=== PATIENT | female | born 1980 | race Asian ===

== ENCOUNTER 2018-12-03 19:19 | Emergency (ER) | payer OTHER ==
--- OUTSIDE RECORDS SUMMARY | 2018-12-03 19:21 | XMS REPORT ---
:1980 Author Organization e[employer]Works Care Team Providers Name Role Phone Tomás Hogue Provider Role Unavailable Allergies, Adverse Reactions, Alerts Substance Reaction Event Type Amoxicillin swollen chin Drug Allergy Problems Problem Type Condition Code Onset Dates Condition Status Problem Depression with anxiety F41.8 Active Problem Vitamin D deficiency E55.9 Active Assessment LGSIL on Pap smear of cervix R87.612 Active Problem Cervical high risk human R87.810 Active papillomavirus (HPV) DNA test positive Problem Atypical squamous cells of R87.610 Active undetermined significance on cytologic smear of cervix (ASC-US) Problem Well woman exam with routine Z01.419 Active gynecological exam Problem Sinus problem J34.9 Active Problem Allergic arthritis M13.89 Active Problem Other specified bacterial agents as B96.89 Active the cause of diseases classified elsewhere Problem Acute vaginitis N76.0 Active Medications Medication Code Code Instructions Start End Status Dosage System Date Date Flagyl ND 12160770505 500 MG Orally Jun 21, Active 1 tablet every 12 hours 2017 Sertraline HCl ND 97306555276 50 MG Orally February 15, Active 1 tablet Once a day 2018 Melatonin ND 08252606788 10 MG Orally Active not defined Vitamin D-3 ND 04189677786 1000 UNIT Orally Active 1 capsule Once a day Magnesium ND 64688930600 200 MG Orally Active 2 tablets Once a day with a meal Results No Known Results Summary Purpose eClinicalWorks Submission
--- OUTSIDE RECORDS SUMMARY | 2018-12-03 19:21 | XMS REPORT ---
:1980 Author Organization [employer]Works Care Team Providers Name Role Phone Hayden Hogueswinder Provider Role Unavailable Allergies, Adverse Reactions, Alerts Substance Reaction Event Type Amoxicillin swollen chin Drug Allergy Problems Problem Type Condition Code Onset Dates Condition Status Problem Depression with anxiety F41.8 Active Problem Vitamin D deficiency E55.9 Active Problem Cervical high risk human R87.810 [...] classified elsewhere Problem Acute vaginitis N76.0 Active Assessment Other specified bacterial agents as B96.89 Active the cause of diseases classified elsewhere Assessment Atypical squamous cells of R87.610 Active undetermined significance on cytologic smear of cervix (ASC-US) Assessment Cervical high risk human R87.810 Active papillomavirus (HPV) DNA test positive Assessment Acute vaginitis N76.0 Active Assessment Well woman exam with routine Z01.419 Active gynecological exam Medications Medication Code Code Instructions Start End Status Dosage System Date Date Magnesium [facility] 82187997200 200 MG Orally Active 2 tablets Once a day with a meal Sertraline HCl [facility] 09434861065 50 MG Orally February 15, Active 1 tablet Once a day 2018 Melatonin [facility] 45508264475 10 MG Orally Active not defined Flagyl [facility] 00655550364 500 MG Orally Jun 21, Active 1 tablet every 12 hours 2018 Vitamin D-3 ND 56790795494 1000 UNIT Orally Active 1 capsule Once a day Results Name Result Date Reference Range Unit Abnormality Flag URINALYSIS AUTO W/O SCOPE (13790) ----NIT neg [id number] ----URO 0.2 [id number] ----PROTEIN neg [id number] ----pH 5.5 20180621 ----BLO trace [id number] ----GLUCOSE neg [id number] ----JEFFREY trace [id number] ----BILIRUBIN neg [id number] ----KETONES neg [id number] ----SPECIFIC GRAVITY 1.025 [id number] Summary Purpose eClinicalWorks Submission
--- OUTSIDE RECORDS SUMMARY | 2018-12-03 19:21 | XMS REPORT ---
:1980 Author Organization eClinicalWorks Care Team Providers Name Role Phone Hilary Garcia Provider Role Unavailable Allergies, Adverse Reactions, Alerts Substance Reaction Event Type Amoxicillin swollen chin Drug Allergy Problems Problem Type Condition Code Onset Dates Condition Status Problem Depression with anxiety F41.8 Active Problem Sinus problem J34.9 Active Problem Vitamin D deficiency E55.9 Active Assessment Other fatigue R53.83 Active Problem Allergic arthritis M13.89 Active Assessment Depression with anxiety F41.8 Active Medications Medication Code Code Instructions Start End Status Dosage System Date Date Vitamin D-3 [facility] 41825019096 1000 UNIT Orally Active 1 capsule Once a day Sertraline HCl ND 33609237087 25 MG Orally February 15, Active 1 tablet Once a day 2017 Melatonin [facility] 41192327165 10 MG Orally Active not defined Magnesium [facility] 81600070947 200 MG Orally Active 2 tablets Once a day with a meal Results No Known Results Summary Purpose eClinicalWorks Submission
--- OUTSIDE RECORDS SUMMARY | 2018-12-03 19:21 | XMS REPORT ---
:1980 Author Organization [employer]Works Care Team Providers Name Role Phone Tomás Hogue Provider Role Unavailable Allergies No Known Allergies Problems Problem Type Condition Code Onset Dates [...] elsewhere Problem Acute vaginitis N76.0 Active Medications No Known Medications Results No Known Results Summary Purpose [employer] Submission
--- OUTSIDE RECORDS SUMMARY | 2018-12-03 19:21 | XMS REPORT ---
:1980 Author Organization eClinicalWorks Care Team Providers Name Role Phone Tmoás Hogue Provider Role Unavailable Allergies No Known [...] Medications Results No Known Results Summary Purpose [employer] Submission
--- OUTSIDE RECORDS SUMMARY | 2018-12-03 19:21 | XMS REPORT ---
:1980 Author Organization eClinicalWorks Care Team Providers Name Role Phone Hilary Garcia Provider Role Unavailable Allergies, Adverse Reactions, Alerts Substance Reaction Event Type Amoxicillin swollen chin Drug Allergy Problems Problem Type Condition Code Onset Dates Condition Status Problem Depression with anxiety F41.8 Active Problem Sinus problem J34.9 Active Problem Vitamin D deficiency E55.9 Active Assessment Encounter for general adult medical Z00.00 Active examination without abnormal findings Assessment Encounter for mammogram to Z12.31 Active establish baseline mammogram Problem Allergic arthritis M13.89 Active Assessment Encounter for gynecological Z01.419 Active examination without abnormal finding Medications Medication Code Code Instructions Start End Status Dosage System Date Date Sertraline HCl [facility] 90973531121 25 MG Orally February 15, Active 1 tablet Once a day 2017 Vitamin D-3 [facility] 89412151599 1000 UNIT Orally Active 1 capsule Once a day Magnesium [facility] 46833851167 200 MG Orally Active 2 tablets Once a day with a meal Melatonin [facility] 48066986367 10 MG Orally Active not defined Results No Known Results Summary Purpose eClinicalWorks Submission
--- OUTSIDE RECORDS SUMMARY | 2018-12-03 19:21 | XMS REPORT ---
:1980 Author Organization eClinicalWorks Care Team Providers Name Role Phone Hilayr Garcia Provider Role Unavailable Allergies No Known Allergies Problems Problem Type Condition Code Onset Dates Condition Status Problem Depression with anxiety F41.8 Active Problem Sinus problem J34.9 Active Problem Vitamin D deficiency E55.9 Active Problem Allergic arthritis M13.89 Active Medications No Known Medications Results No Known Results Summary Purpose [employer] Submission
--- NOTE | 2018-12-03 19:56 | EDPHYS ---
Physician Documentation [facility] Department Name: Isabella Gu Age: 38 yrs Sex: Female : 1980 Arrival Date: 12/03/2018 Time: 19:21 Bed 24 Private MD: Lachelle Garcia ED Physician Nathan Ann HPI: 12/03 19:48 This 38 yrs old Female presents to ER via Ambulatory with complaints of Neck pm1 Pain, <24hrs Old. 19:48 The patient or guardian complains of pain, that is acute. The symptoms are located on pm1 the left trapezius and right trapezius. Onset: The symptoms/episode began/occurred this morning. Context: The problem was sustained at work, The neck injury/problem resulted from patient was cleaning under a sink and when she got up she hit the back of her head. Patient woke up this Am with pain to her neck. Patient without headache today. No LOC. Associated signs and symptoms: Pertinent negatives: headache, nausea, numbness, tingling, vomiting, weakness. The pain does not radiate. Modifying factors: The symptoms are alleviated by nothing. the symptoms are aggravated by nothing. The patient has not experienced similar symptoms in the past. The patient has not recently seen a physician. 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 - Social history:: Smoking status: unknown. - Ebola Screening: : No symptoms or risks identified at this time. ROS: 19:48 Constitutional: Negative for fever, chills, and weight loss, Eyes: Negative for injury, pm1 pain, redness, and discharge, ENT: Negative for injury, pain, and discharge. 19:48 Cardiovascular: Negative for chest pain, palpitations, and edema, Respiratory: Negative for shortness of breath, cough, wheezing, and pleuritic chest pain, Abdomen/GI: Negative for abdominal pain, nausea, vomiting, diarrhea, and constipation, Back: Negative for injury and pain, : Negative for injury, bleeding, discharge, and swelling, MS/Extremity: Negative for injury and deformity, Skin: Negative for injury, rash, and discoloration, Neuro: Negative for headache, weakness, numbness, tingling, and seizure. 19:48 Neck: Positive for tenderness, of the left trapezius and right trapezius, Negative for bony tenderness. Exam: 19:48 Constitutional: This is a well developed, well nourished patient who is awake, alert, pm1 and in no acute distress. Head/Face: Normocephalic, atraumatic. Eyes: Pupils equal round and reactive to light, extra-ocular motions intact. Lids and lashes normal. Conjunctiva and sclera are non-icteric and not injected. Cornea within normal limits. Periorbital areas with no swelling, redness, or edema. ENT: Nares patent. No nasal discharge, no septal abnormalities noted. Tympanic membranes are normal and external auditory canals are clear. Oropharynx with no redness, swelling, or masses, exudates, or evidence of obstruction, uvula midline. Mucous membranes moist. 19:48 Chest/axilla: Normal chest wall appearance and motion. Nontender with no deformity. No lesions are appreciated. Cardiovascular: Regular rate and rhythm with a normal S1 and S2. No gallops, murmurs, or rubs. Normal PMI, no JVD. No pulse deficits. Respiratory: Lungs have equal breath sounds bilaterally, clear to auscultation and percussion. No rales, rhonchi or wheezes noted. No increased work of breathing, no retractions or nasal flaring. Abdomen/GI: Soft, non-tender, with normal bowel sounds. No distension or tympany. No guarding or rebound. No evidence of tenderness throughout. Back: No spinal tenderness. No costovertebral tenderness. Full range of motion. Skin: Warm, dry with normal turgor. Normal color with no rashes, no lesions, and no evidence of cellulitis. MS/ Extremity: Pulses equal, no cyanosis. Neurovascular intact. Full, normal range of motion. 19:48 Neck: External neck: tenderness, of the left trapezius and right trapezius, pain, C-spine: vertebral tenderness, is not appreciated, ROM/movement: is normal, no meningismus, no nuchal rigidity, negative Brudzinski's sign, negative Kernig's sign. 19:48 Neuro: Orientation: is normal, Mentation: is normal, Cranial nerves: CN II- XII are normal as tested, Cerebellar function: Romberg testing is negative, normal finger to nose testing, heel to navarro testing is normal, Motor: moves all fours, Sensation: is normal, no obvious gross deficits. Vital Signs: 19:29 BP 148 / 92; Pulse 75; Resp 18; Temp 98.2; Pulse Ox 98% on R/A; Weight 54.88 kg (R); ak1 Height 5 ft. 1 in. (154.94 cm) (R); Pain 7/10; 19:29 Body Mass Index 22.86 (54.88 kg, 154.94 cm) ak1 MDM: 19:31 Patient medically screened. pm1 19:54 Data reviewed: vital signs. Data interpreted: Pulse oximetry: on room air is 98 %. pm1 Interpretation: normal. Counseling: I had a detailed discussion with the patient and/or guardian regarding: the historical points, exam findings, and any diagnostic results supporting the discharge/admit diagnosis, the need for outpatient follow up, to return to the emergency department if symptoms worsen or persist or if there are any questions or concerns that arise at home. 12/03 19:48 Order name: Urine Dipstick--Ancillary (enter results) 12/03 19:48 Order name: Urine --Ancillary (enter results) 12/03 19:48 Order name: Urine Dipstick-Ancillary EDMS Administered Medications: No medications were administered Disposition: 12/04 07:10 Co-signature as Attending Physician, Nathan Ann MD I agree with the assessment and madhu plan of care. Disposition: 12/03/18 19:55 Discharged to Home. Impression: Strain of muscle, fascia and tendon at neck level. - Condition is Stable. - Discharge Instructions: Muscle Strain. - Prescriptions for Naprosyn 500 mg Oral Tablet - take 1 tablet by ORAL route 2 times per day As needed take with food; 30 tablet. Cyclobenzaprine 10 mg Oral Tablet - take 1 tablet by ORAL route every 8 hours As needed; 30 tablet. - Medication Reconciliation Form, Thank You Letter form. - Follow up: Emergency Department; When: As needed; Reason: Worsening of condition. Follow up: Private Physician; When: 2 - 3 days; Reason: Recheck today's complaints, Continuance of care, Re-evaluation by your physician. - Problem is new. - Symptoms have improved. Signatures: Dispatcher [employer] EDMS Nathan Ann MD MD cha Krenek, Amber, RN RN ak1 Howard Zavala, KIKE INSTRUMENT MAN pm1 Cristofer Bowman, RN RN mg2 Corrections: (The following items were deleted from the chart) 12/03 20:15 19:55 12/03/2018 19:55 Discharged to Home. Impression: Strain of muscle, fascia and mg2 tendon at neck level. Condition is Stable. Forms are Medication Reconciliation Form, Thank You Letter, Antibiotic Education, Prescription Opioid Use. Follow up: Emergency Department; When: As needed; Reason: Worsening of condition. Follow up: Private Physician; When: 2 - 3 days; Reason: Recheck today's complaints, Continuance of care, Re-evaluation by your physician. Problem is new. Symptoms have improved. pm1
--- NOTE | 2018-12-03 19:56 | ER ---
Nurse's Notes [facility] Name: Isabella Gu Age: 38 yrs Sex: Female : 1980 Arrival Date: 12/03/2018 Time: 19:21 Bed 24 Private MD: Lachelle Garcia Diagnosis: Strain of muscle, fascia and tendon at neck level Presentation: 12/03 19:27 Presenting complaint: Patient states: head, neck and shoulder pain after hitting her ak1 head yesterday at 1430. pt denies LOC yesterday, denies vomiting. pt c/o dizziness and nausea today. Transition of care: patient was not received from another setting of care. Onset of symptoms was December 02, 2018. Risk Assessment: Do you want to hurt yourself or someone else? Patient reports no desire to harm self or others. Initial Sepsis Screen: Does the patient meet any 2 criteria? No. Patient's initial sepsis screen is negative. Does the patient have a suspected source of infection? No. Patient's initial sepsis screen is negative. Care prior to arrival: None. 19:27 Method Of Arrival: Ambulatory ak 19:27 Acuity: JOSE R 4 ak1 Triage Assessment: 19:29 General: Appears in no apparent distress. Behavior is calm, cooperative. 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 - Social history:: Smoking status: unknown. - Ebola Screening: : No symptoms or risks identified at this time. Screenin:14 Abuse screen: Denies threats or abuse. Denies injuries from another. Nutritional mg2 screening: No deficits noted. Tuberculosis screening: No symptoms or risk factors identified. Fall Risk None identified. Assessment: 20:12 General: Appears in no apparent distress. comfortable, Behavior is calm, cooperative. mg2 Pain: Complains of pain in neck Pain does not radiate. Pain currently is 2 out of 10 on a pain scale. Quality of pain is described as aching, Pain began gradually, 1 day ago. Is intermittent. Neuro: Level of Consciousness is awake, alert, obeys commands, Oriented to person, place, time, situation. Cardiovascular: Capillary refill < 3 seconds Patient's skin is warm and dry. Respiratory: Airway is patent Respiratory effort is even, unlabored, Respiratory pattern is regular, symmetrical. GI: No signs and/or symptoms were reported involving the gastrointestinal system. : No signs and/or symptoms were reported regarding the genitourinary system. EENT: No signs and/or symptoms were reported regarding the EENT system. Derm: Skin is intact, is healthy with good turgor, Skin is pink, warm \T\ dry. normal. Musculoskeletal: Circulation, motion, and sensation intact. Capillary refill < 3 seconds, Reports pain in neck since this morning. Vital Signs: 19:29 BP 148 / 92; Pulse 75; Resp 18; Temp 98.2; Pulse Ox 98% on R/A; Weight 54.88 kg (R); ak1 Height 5 ft. 1 in. (154.94 cm) (R); Pain 7/10; 19:29 Body Mass Index 22.86 (54.88 kg, 154.94 cm) ak1 ED Course: 19:20 Urine collected: clean catch specimen, clear, corina colored, Amount Voided: 80mL. jp3 19:21 Patient arrived in ED. am2 19:22 Lachelle Garcia FNP-C is Private Physician. am2 19:28 Triage completed. ak1 19:29 Arm band placed on Patient placed in an exam room, on a stretcher, Patient notified of ak1 wait time. Urine obtained. 19:30 Howard Zavala NP is PHCP. pm1 19:31 Nathan Ann MD is Attending Physician. pm1 19:52 Urine Dipstick-Ancillary Sent. jp3 19:52 Urine Dipstick--Ancillary (enter results) Sent. jp3 19:53 Urine --Ancillary (enter results) Sent. jp3 20:00 Cristofer Bowman, NICOLE is Primary Nurse. mg2 20:14 Patient has correct armband on for positive identification. Door closed. mg2 20:14 No provider procedures requiring assistance completed. Patient did not have IV access mg2 during this emergency room visit. Administered Medications: No medications were administered Outcome: 19:55 Discharge ordered by . pm1 20:14 Discharged to home ambulatory. mg2 20:14 Condition: stable 20:14 Discharge instructions given to patient, Instructed on discharge instructions, follow up and referral plans. medication usage, Demonstrated understanding of instructions, follow-up care, medications, Prescriptions given X 2. 20:15 Patient left the ED. mg2 Signatures: Corina Hernadez, RN RN ak1 Howard Zavala NP RN PERITONEAL DIALYSIS pm1 Anna Marie Owens am2 Cristofer Bowman RN RN mg2 Devon Joyce jp3
[2018-12-03 20:18] LABS: Urine Blood NEGATIVE (NEG); Urine Glucose NEGATIVE (NEG); Urine Protein NEGATIVE (NEG); Urine Specific Gravity 1.005 (1.005-1.030); Urine pH 6.5 (5.0-7.0)
== END 2018-12-03 20:15 | disposition home or self-care (01) ==
LOC: ER 19:19
DX: S16.1XXA Strain of muscle, fascia and tendon at neck level, initial encounter (principal); W22.8XXA Striking against or struck by other objects, initial encounter; Y93.E9 Activity, other interior property and clothing maintenance; Z88.0 Allergy status to penicillin
CPT/HCPCS: 81003; 81025; 99283